=== PATIENT | male | born 1945 | race Caucasian/White ===

== ENCOUNTER → 2016-12-14 | Outpatient (CLI) | payer MEDICARE, OTHER ==
[~2016-12-14] MED LIST: AMLO10TA82 PO; DAPS25TA2 PO; DOXY100C2 PO; DXZS4T PO; HCT25T PO; LISI40TA PO; PRD20T PO; SULF1TAB38 PO
== END ==
LOC: RAD 08:43
PROVIDERS: ATTEND Internal Medicine
DX: M54.12 Radiculopathy, cervical region (principal)

== ENCOUNTER → 2016-12-21 | Outpatient (CLI) | payer MEDICARE, OTHER ==
--- NOTE | 2016-12-21 16:48 | Diagnostic Imaging Report ---
PROCEDURE: MR imaging cervical spine without contrast. TECHNIQUE: Multiplanar, multisequence MR imaging of the cervical spine was performed without contrast. INDICATION: Neck and left shoulder pain. FINDINGS: Please note that the patient had difficulty laying still for the exam despite the registered vascular technologist (rvt) using sponges around his head to help him tolerate the exam. The technologist has scanned multiple times repeating sequences due to motion artifact with the best sequences eventually sent to PACS which are of decreased resolution due to the artifact. This could obscure a subtle abnormality, although the overall diagnostic value of this exam for major abnormalities is acceptable. There is straightening of the cervical curvature. The alignment of the posterior spinal line is satisfactory. The vertebral body heights are preserved. There is disc height loss at C5/6 level with disc desiccation. No suspicious marrow signal abnormality is seen. There is minimal marrow edema around the mid cervical spine disc level suggested. The foramen magnum and the upper cervical canal are widely patent. The AP dimension of the spinal canal is relatively narrow on a congenital basis. The spinal cord signal is associated with artifacts with no definitive focal abnormality. C2/3: No disc herniation, no spinal canal or foraminal stenosis. The foramina demonstrate mild narrowing on the left side and patent on the right. C3/4: There is a disc spur complex with associated moderate spinal canal stenosis decreasing the AP dimension of the canal to 7.6 mm. This results in minimal flattening of the anterior margin of the spinal cord. The uncovertebral and facet hypertrophy bilaterally results in nyuwcvwz-pm-bthldj stenosis. C4/5: There is a disc spur complex with associated vnxiinkh-vu-fxatew spinal canal stenosis. AP dimension of the central canal is 7.3 mm. There is mild cord compression. The foramina demonstrate hyazusxl-nj-nnjkvg stenosis bilaterally. C5/6: There is a spur disc complex with cqwepiiz-sk-mfwpbo spinal canal stenosis reducing the AP dimension of the canal to 7 mm and resulting in mild compression of the cord. The foramina demonstrate severe stenosis bilaterally, worse on the left side. C6/7: There is a disc spur complex associated with mild spinal canal stenosis reducing the AP dimension of the canal to 8.7 mm. No cord compression. There is bilateral severe stenosis. IMPRESSION: 1. Please note, artifacts due to patient's inability to hold still which could obscure subtle abnormalities. 2. 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 There is also multilevel high-grade foraminal stenosis. Dictated by: Dictated on workstation # [id number]
== END ==
LOC: RAD 15:06
PROVIDERS: ATTEND Internal Medicine
DX: M54.12 Radiculopathy, cervical region (principal); M48.02 Spinal stenosis, cervical region
CPT/HCPCS: 72141

== ENCOUNTER → 2019-01-23 | Outpatient (CLI) | payer MEDICARE, OTHER ==
--- NOTE | 2019-01-23 11:36 | Diagnostic Imaging Report ---
PROCEDURE: US carotid duplex, bilateral. TECHNIQUE: Multiple real-time grayscale images were obtained over the carotid arteries in various projections, bilaterally. Additional spectral analysis and color Doppler duplex images were also obtained. INDICATION: Right carotid bruit. FINDINGS: There is moderate plaquing identified in the distal common carotid arteries, carotid bulbs, and bifurcations as well as the proximal internal and external carotid arteries. Velocities are elevated in both common carotid arteries reaching 138 cm/s on the right and 167 cm/s on the left. Internal carotid artery velocities are also elevated, reaching 242 cm/s in the proximal right ICA and 189 cm/s in the proximal left ICA. Both external carotid arteries are elevated reaching 622 cm/s on the right and 440 cm/s on the left. The vertebral arteries show antegrade flow. IMPRESSION: Elevated carotid velocities consistent with 60-79% diameter stenosis in the proximal internal carotid arteries bilaterally. Parameters based on the consensus panel Whitaker-Scale and Doppler ultrasound criteria published May 2003, Radiology, Volume 229. DOPPLER (peak systolic velocity CM/S Right Left CCA 138 167 ICA Proximal 242 189 ICA Mid 226 157 ICA Distal 155 142 RATIO 1.8 1.1 ECA 622 440 VERT 80.5 69.5 Dictated by: Dictated on workstation # [id number]
== END ==
LOC: RAD 08:31
PROVIDERS: ATTEND Internal Medicine
DX: I10 Essential (primary) hypertension (principal); R09.89 Other specified symptoms and signs involving the circulatory and respiratory systems
CPT/HCPCS: 93880

== ENCOUNTER → 2020-12-20 | Outpatient (CLI) | payer MEDICARE, OTHER ==
--- NOTE | 2020-12-20 14:04 | Diagnostic Imaging Report ---
PROCEDURE: CT abdomen and pelvis without contrast. TECHNIQUE: Multiple contiguous axial images were obtained through the abdomen and pelvis without the use of intravenous contrast. Auto Exposure Controls were utilized during the CT exam to meet ALARA standards for radiation dose reduction. INDICATION: Gross hematuria COMPARISON: None available FINDINGS: The visualized lung bases are clear. The gallbladder is filled with layering hyperdensities. Additionally, prominent gallstones are identified within the neck of the gallbladder. The unenhanced liver and spleen are unremarkable. The adrenal glands are unremarkable. The unenhanced pancreas is unremarkable. Mild bilateral perinephric fat stranding is present. The right kidney and right ureter are otherwise unremarkable. 1.1 cm hypodensity within the posterior aspect of the left mid kidney is noted, which is indeterminate. The left kidney and left ureter are otherwise unremarkable. Advanced background vascular calcifications are present within the abdominal aorta and its branch vessels. Large chunky calcification is noted within the left common iliac artery resulting in high-grade stenosis at this location. Mural thickening of the urinary bladder, though the urinary bladder is poorly distended. The prostate gland is minimally enlarged. Mild colonic diverticulosis without CT evidence of diverticulitis. No bowel obstruction or pneumatosis. No significant adenopathy, free air, or free fluid within the abdomen or pelvis. Mild scattered osseous degenerative changes without acute osseous abnormality. IMPRESSION: Mural thickening of the urinary bladder. This is nonspecific. This could relate to cystitis or postradiation changes. However, this could also simply relate to poor distention as the urinary bladder is poorly distended. Infiltrative mass lesion cannot be excluded. Bilateral perinephric fat stranding, related to senescent changes of the kidneys versus pyelonephritis. Recommend correlation with urinary analysis. No radiopaque ureteral or renal calculi. Indeterminate 1.1 cm left renal hypodensity. Recommend renal ultrasound versus CT of the abdomen with and without contrast using renal mass protocol for further evaluation. Stones within the neck of the gallbladder with associated layering sludge and/or tiny stones within the gallbladder. Advanced background vascular calcifications with high-grade stenosis involving the proximal left common iliac artery. Dictated by: Dictated on workstation # [id number]
== END ==
LOC: RAD 12:45
PROVIDERS: ATTEND Urology
DX: N21.0 Calculus in bladder (principal); N32.89 Other specified disorders of bladder; I70.8 Atherosclerosis of other arteries
CPT/HCPCS: 74176

== ENCOUNTER 2020-12-30 05:43 | Outpatient (CLI) | payer MEDICARE ==
[~2020-12-30] VITALS: Ht 182.9 cm; Wt 93.2 kg
[2020-12-30] MEDS ORDERED: ATOR20TA66 PO (15:27)
[2020-12-30] MEDS ORDERED: DOXA4TAB2 PO (15:27)
[2020-12-30] MEDS ORDERED: CHLO25TA22 PO (15:27)
[2020-12-30] MEDS ORDERED: IRBE300T17 PO (15:27)
[2020-12-30] MEDS ORDERED: SPIR25TA5 PO (15:27)
[2020-12-30] MEDS ORDERED: AMLO-251 PO (15:27)
[2020-12-30] MEDS ORDERED: FEXO-46 PO (15:27)
== END 2020-12-30 15:32 | disposition home or self-care (01) ==
LOC: PREOP 05:43
PROVIDERS: ATTEND Urology
DX: Z01.818 Encounter for other preprocedural examination (principal)

== ENCOUNTER → 2020-12-31 | Outpatient (CLI) | payer MEDICARE ==
[~2020-12-31] MED LIST changes: +AMLO-251 PO; +ATOR20TA66 PO; +CHLO25TA22 PO; +DOXA4TAB2 PO; +FEXO-46 PO; +IRBE300T17 PO; +SPIR25TA5 PO
--- NOTE | 2020-12-31 16:39 | Diagnostic Imaging Report ---
PROCEDURE: US Renal Bilateral. TECHNIQUE: Multiple real-time grayscale images were obtained over the kidneys in various projections bilaterally. INDICATION: Left renal mass noted on recent CT. Study is performed for further evaluation. Correlation is made with CT study from 12/20/2020. Right kidney measures 10.1 x 5.2 x 5.7 cm and the left kidney measures 10.0 x 6.1 x 5.5 cm. Cortical thickness and echogenicity is normal bilaterally. There is an area of rounded hypoechogenicity in the cortex of left kidney measuring approximately 11 mm x 15 mm x 11 mm. This does contain an adjacent hyperechoic portion, indeterminate. No calcifications are identified on the CT. There is no hydronephrosis. Right kidney is unremarkable. Bladder demonstrates bilateral ureteral jets. IMPRESSION: Indeterminate hypoechogenicity in the left kidney, likely accounting for the low density noted on recent CT. This is too small to accurately characterize. Close follow-up would be recommended. Consideration could be given to performance of pre and postcontrast CT to evaluate for enhancement. Dictated by: Dictated on workstation # [id number]
== END ==
LOC: RAD 14:45
PROVIDERS: ATTEND Urology
DX: N28.9 Disorder of kidney and ureter, unspecified (principal)
CPT/HCPCS: 76770

== ENCOUNTER 2021-01-06 06:19 | Day surgery (SDC) | payer MEDICARE, OTHER ==
[2021-01-06] VITALS (10 sets, daily range): BP systolic 125–179; BP diastolic 57–70
[~2021-01-06] VITALS: Ht 182.9 cm; Wt 93.2 kg
[2021-01-06] MEDS ORDERED: LACTATED RINGERS 1,000 ML IV PRN (06:30)
--- NOTE | 2021-01-06 07:26 | Progress Note-Pre Operative ---
Pre-Operative Progress Note H&P Reviewed The H&P was reviewed, patient examined and no changes noted. Date Seen by Provider: Jan 06, 2021 Time Seen by Provider: 07:25 Date H&P Reviewed: Jan 06, 2021 Time H&P Reviewed: 07:25 Pre-Operative Diagnosis: BLADDER TUMORS SWAPNA BAXTER MD Jan 06, 2021 07:25
--- NOTE | 2021-01-06 07:34 | Progress Note-Post Operative ---
Post-Operative Progess Note Surgeon (s)/Gis Physical Scientist (s) Surgeon SWAPNA BAXTER MD Gis Physical Scientist: NONE Pre-Operative Diagnosis BLADDER TUMORS Post-Operative Diagnosis SAME Procedure & Operative Findings Date of Procedure 01/06/21 Procedure Performed/Findings TURBT'S Anesthesia Type GENERAL Estimated Blood Loss Estimated blood loss (mL): NEGLIGIBLE Specimens/Packing Specimens Removed BLADDERS TUMORS AND BASES Packing: NONE SWAPNA BAXTER MD Jan 06, 2021 07:34
[2021-01-06] MEDS ORDERED: fentaNYL INJ 100 MCG/2 ML AMP ONE (08:40)
[2021-01-06] MEDS ORDERED: MIDAZOLAM 2 MG/2 ML (VERSED) VIAL ONE (08:41)
[2021-01-06] MEDS ORDERED: ROCURONIUM 10 MG/ML 5 ML SYRINGE IV ONE (09:04)
[2021-01-06] MEDS ORDERED: LIDOCAINE PF 2% 5 ML (XYLOCAINE) VIAL ONE (09:04)
[2021-01-06] MEDS ORDERED: SEVOFLURANE (ULTANE) 15 ML INHAL SOLN ONE (09:04)
[2021-01-06] MEDS ORDERED: proPOfol 200 MG/20 ML (DIPRIVAN) VIAL IV ONE (09:04)
[2021-01-06] MEDS ORDERED: GLYCOPYRROLATE 0.2 MG/ML (ROBINUL) 2 ML VIAL ONE (09:04)
[2021-01-06] MEDS ORDERED: NEOSTIGMINE 3 MG/3 ML VIAL ONE (09:04)
[2021-01-06] MEDS ORDERED: ONDANSETRON 4 MG/2 ML (SDV) Z0FRAN ONE (09:04)
--- NOTE | 2021-01-06 13:32 | Anesthesia-General Post-Op ---
General Patient Condition Mental Status/LOC: Same as Preop Cardiovascular: Satisfactory Nausea/Vomiting: Absent Respiratory: Satisfactory Pain: Controlled Complications: Absent Post Op Complications Complications None Follow Up Care/Instructions Patient Instructions None needed. Anesthesia/Patient Condition Patient Condition Patient is doing well, no complaints, stable vital signs, no apparent adverse anesthesia problems. No complications reported per nursing. NIC KURTZ CRNA Jan 06, 2021 13:32
--- NOTE | 2021-01-06 14:16 | OPERATIVE REPORT ---
DATE OF SERVICE: 01/06/2021 PREOPERATIVE DIAGNOSIS: Multiple bladder tumors. POSTOPERATIVE DIAGNOSIS: Multiple bladder tumors. OPERATION PERFORMED: Transurethral resection of bladder tumors "medium." SURGEON: Swapna Baxter MD ANESTHESIA: General. COMPLICATIONS: None. DESCRIPTION OF PROCEDURE: Under satisfactory general anesthesia, the patient in lithotomy position, genitalia were prepped and draped in the usual sterile fashion. Urethra was dilated with Zoey sound to #30 Grenadian to accommodate 27-Grenadian Kevin resectoscope. Again, visualized the multiple areas of redness diffusely into the bladder as well as the medium sized bladder tumor on the right side close to the bladder neck. This one was resected including the base. The bleeders were cauterized. In a similar fashion, I obtained several transurethral resection biopsies of all visible abnormal areas in the posterior wall, the right side, the left side and sent them separately. Bleeders were again cauterized and hemostasis was complete. Ureteric orifices were intact with clear effluxes. No further visible bladder tumor was visualized. I elected to leave a catheter because of the multiple areas of dissection and resection, so I inserted an 18-Grenadian Rincon catheter, inflated the balloon to 10 mL, connected to dependent drainage, the return of which was . Estimated blood loss was negligible, none of which was replaced. The patient tolerated the procedure and anesthesia well and was sent to recovery room in stable condition. PLAN: We will send him home with the catheter, come back Wednesday morning at the office and take it out. He is to stay off aspirin until further orders. Job ID: [id number] DocumentID: [id number] Dictated Date: 01/06/2021 10:03:45 Financial Analysis Consultant Date: 01/06/2021 14:15:40 Dictated By: SWAPNA ABXTER MD
== END 2021-01-06 11:25 | disposition home or self-care (01) ==
LOC: SDC 06:19
PROVIDERS: ATTEND Urology
DX: C67.2 Malignant neoplasm of lateral wall of bladder (principal); N30.21 Other chronic cystitis with hematuria; I10 Essential (primary) hypertension; Z88.0 Allergy status to penicillin; Z79.899 Other long term (current) drug therapy; Z87.891 Personal history of nicotine dependence
CPT/HCPCS: 87081

== ENCOUNTER → 2021-05-08 | Outpatient (CLI) | payer MEDICARE, OTHER ==
[~2021-05-08] MED LIST changes: +CATHETER FLUSH 10 ML SYR IV PRN; +HOLD METFORMIN - RECEIVED CONTRAST 20 ML VIAL IV SCH; +IOHEXOL 350 MG/ML 100 ML (OMNIPAQUE 350) VIAL IV ONE; +NS 100 ML (IVPB) BAG IV ONE
[2021-05-08 09:37] LABS: CREATININE SERUM 1.09 MG/DL (0.60-1.30)
--- NOTE | 2021-05-08 10:30 | Diagnostic Imaging Report ---
PROCEDURE: CT abdomen and pelvis with and without contrast. TECHNIQUE: Multiple contiguous axial CT images of the abdomen and pelvis were obtained prior to and after intravenous administration of iodinated contrast. Auto Exposure Controls were utilized during the CT exam to meet ALARA standards for radiation dose reduction. INDICATION: Follow-up renal lesion. History of bladder cancer. COMPARISON: 12/20/2020. FINDINGS: The heart is unremarkable. The lung bases are clear. A small hiatal hernia is seen. Simple cortical cyst is seen in the left kidney, unchanged from the prior exam and measuring 1.1 cm. No solid renal masses seen. No hydronephrosis or renal calculi. The urinary bladder is decompressed. There is bladder wall thickening. No discrete intraluminal mass is seen within the urinary bladder. No bladder calculi. The liver, spleen, pancreas, and adrenal glands have a normal appearance. The gallbladder surgically absent. There is no pathologically enlarged mesenteric or retroperitoneal adenopathy. The bowel loops are nondilated. Scattered diverticula are seen in the descending and sigmoid colon without evidence of acute diverticulitis. There is no free fluid or free air. No acute osseous abnormalities. There is calcified aortic and iliac atherosclerotic plaque. Bulky calcified atherosclerotic plaque is seen in the left common iliac artery resulting in high-grade stenosis/occlusion. There is aneurysmal dilation of the left common iliac artery measuring 2.0 cm. There is no free air, loculated collection, or adenopathy in the pelvis. IMPRESSION: 1. Benign cortical cyst in the left kidney. No suspicious renal lesions are seen. No dedicated follow-up is recommended regarding this cyst. 2. Generalized thickening of the urinary bladder without discrete mass. 3. Small hiatal hernia. 4. Scattered diverticula in the descending and sigmoid colon without evidence of acute diverticulitis. 5. 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 This has not changed since the prior exam. Dictated by: Dictated on workstation # [id number]
== END ==
LOC: RAD 10:15
PROVIDERS: ATTEND Urology
DX: N28.1 Cyst of kidney, acquired (principal); N32.89 Other specified disorders of bladder; K44.9 Diaphragmatic hernia without obstruction or gangrene; K57.30 Diverticulosis of large intestine without perforation or abscess without bleeding; I72.3 Aneurysm of iliac artery; Z85.51 Personal history of malignant neoplasm of bladder
CPT/HCPCS: 36415; 74170; 82565; 84520